=== PATIENT | male | born 1960 | race Caucasian/White ===

== ENCOUNTER 2020-09-05 19:51 | Emergency (ER) | payer MEDICAID ==
--- NOTE | 2020-09-05 20:09 | EDM.PDOC ---
ED HPI GENERAL MEDICAL PROBLEM - General Chief Complaint: Head Injury Stated Complaint: [facility] Time Seen by Provider: 09/05/20 20:07 - History of Present Illness INITIAL COMMENTS - FREE TEXT/NARRATIVE: 60-year-old male brought in by EMS about 45 minutes out. Sometime this afternoon the patient fell off his patio he says was 6 to 8 inches above the ground landed face first into the ground. Family gives no certainty of being knocked out but perhaps he was the patient does not believe he was. The patient is a little confused at this point he knows who he is but is not certain where he is at or the date. The patient has a history of chronic alcoholism. The patient dates he had a few drinks earlier today and believes this is why he fell. The patient denies pain or other problems at this time. - Related Data Allergies Allergy/AdvReac Type Severity Reaction Status Date / Time No Known Allergies Allergy Verified 09/05/20 20:04 Past Medical History Cardiovascular History: Reports: Hypertension Social & Family History - Tobacco Use Tobacco Use Status *Q: Current Every Day Tobacco User Years of Tobacco use: 30 Packs/Tins Daily: 1 - Caffeine Use Caffeine Use: Reports: Coffee - Recreational Drug Use Recreational Drug Use: No ED ROS GENERAL - Review of Systems Review Of Systems: See Below Constitutional: Reports: No Symptoms HEENT: Reports: No Symptoms Respiratory: Reports: No Symptoms Cardiovascular: Reports: No Symptoms Endocrine: Reports: No Symptoms GI/Abdominal: Reports: No Symptoms : Reports: No Symptoms Musculoskeletal: Reports: No Symptoms Skin: Reports: No Symptoms Neurological: Reports: Confusion. Denies: Headache Psychiatric: Reports: No Symptoms ED EXAM, HEAD INJURY - Physical Exam Exam: See Below Exam Limited By: Intoxication (However he tries to answer questions appropriately he is not combative and is otherwise cooperative) General Appearance: Alert, No Apparent Distress Head: Facial Abrasions, Facial Ecchymosis, Other (Is a little more than a couple hours old) Eyes: Bilateral Eye: EOMI, Normal Inspection, PERRL Ears: Normal External Exam, Normal Canal, Hearing Grossly Normal, Normal TMs Nose: Normal Inspection, Normal Mucousa, No Blood Throat/Mouth: Normal Inspection, Normal Lips, Normal Gums, Normal Oropharynx, Normal Voice, No Airway Compromise. No: Normal Teeth (He has dentures on the top no teeth on the bottom) Neck: Other (He has some limited range of motion but denies tenderness) Respiratory: No Respiratory Distress, Lungs Clear, Normal Breath Sounds Cardiovascular: Regular Rate, Rhythm, No Edema, No Murmur GI/Abdominal Exam: Normal Bowel Sounds, Soft, Non-Tender, Pelvis Stable Back Exam: Normal Inspection. No: CVA Tenderness (L), CVA Tenderness (R), Vertebral Tenderness Extremities: Normal Inspection, No Pedal Edema Course - Vital Signs Last Recorded V/S: Last Vital Signs Temp 36.6 C 09/05/20 20:01 Pulse 103 H 09/05/20 20:01 Resp 22 H 09/05/20 20:01 BP 159/109 H 09/05/20 20:01 Pulse Ox 91 L 09/05/20 20:01 - Orders/Labs/Meds Orders: Active Orders 24 hr Category Date Time Status Cervical Spine wo Cont [CT] Stat Exams 09/05/20 20:16 Taken Head wo Cont [CT] Stat Exams 09/05/20 20:16 Taken Labs: Laboratory Tests 09/05/20 09/05/20 09/05/20 Range/Units 20:01 20:01 20:01 WBC 5.70 (4.23-9.07) K/mm3 RBC 4.23 L (4.63-6.08) M/mm3 Hgb 14.6 (13.7-17.5) gm/dl Hct 44.1 (40.1-51.0) % MCV 104.3 H (79.0-92.2) fl MCH 34.5 H (25.7-32.2) pg MCHC 33.1 (32.2-35.5) g/dl RDW Std Deviation 51.9 H (35.1-43.9) fL Plt Count 77 L (163-337) K/mm3 MPV 12.6 H (9.4-12.3) fl Neut % (Auto) 85.7 H (34.0-67.9) % Lymph % (Auto) 6.7 L (21.8-53.1) % Sauk % (Auto) 7.0 (5.3-12.2) % Eos % (Auto) 0 L (0.8-7.0) Baso % (Auto) 0.4 (0.1-1.2) % Neut # (Auto) 4.89 (1.78-5.38) K/mm3 Lymph # (Auto) 0.38 L (1.32-3.57) K/mm3 Sauk # (Auto) 0.40 (0.30-0.82) K/mm3 Eos # (Auto) 0.00 L (0.04-0.54) K/mm3 Baso # (Auto) 0.02 (0.01-0.08) K/mm3 Manual Slide Review Abnormal smear PT 10.9 (9.7-12.0) SECONDS INR 1.02 APTT 23.6 (21.7-31.4) SECONDS Sodium 140 (136-145) mEq/L Potassium 3.4 L (3.5-5.1) mEq/L Chloride 98 (98-107) mEq/L Carbon Dioxide 25 (21-32) mEq/L Anion Gap 20.4 H (5-15) BUN 8 (7-18) mg/dL Creatinine 0.9 (0.7-1.3) mg/dL Est Cr Clr Drug Dosing 85.50 mL/min Estimated GFR (MDRD) > 60 (>60) mL/min BUN/Creatinine Ratio 8.9 L (14-18) Glucose 194 H (74-106) mg/dL Calcium 9.0 (8.5-10.1) mg/dL Total Bilirubin 1.2 H (0.2-1.0) mg/dL AST 64 H (15-37) U/L ALT 33 (16-63) U/L Alkaline Phosphatase 78 (46-116) U/L Total Protein 8.3 H (6.4-8.2) g/dl Albumin 3.6 (3.4-5.0) g/dl Globulin 4.7 gm/dL Albumin/Globulin Ratio 0.8 L (1-2) Urine Color (Yellow) Urine Appearance (Clear) Urine pH (5.0-8.0) Ur Specific Bard (1.005-1.030) Urine Protein (Negative) Urine Glucose (UA) (Negative) Urine Ketones (Negative) Urine Occult Blood (Negative) Urine Nitrite (Negative) Urine Bilirubin (Negative) Urine Urobilinogen (0.2-1.0) Ur Leukocyte Esterase (Negative) Urine RBC (0-5) /hpf Urine WBC (0-5) /hpf Ur Squamous Epith Cells (0-5) /hpf Urine Bacteria (FEW) /hpf Urine Mucus (FEW) /hpf Urine Opiates Screen (LUKMNU=279) Ur Buprenorphine Scrn (CUTOFF=10) Ur Oxycodone Screen (VKQ3SC=476) Urine Methadone Screen (HSI4HD=229) Ur Propoxyphene Screen (YMZTMM=295) Ur Barbiturates Screen (MBCWVZ=495) Ur Tricyclics Screen (XZBOTC=719) Ur Phencyclidine Scrn (CUTOFF=25) Ur Amphetamine Screen (OJKQMT=751) U Methamphetamines Scrn (UYCKUD=654) U Benzodiazepines Scrn (LCASRW=874) U Cocaine Metab Screen (ZCPITK=463) U Marijuana (THC) Screen (CUTOFF=50) Ethyl Alcohol 0.00 (0.00) gm% 09/05/20 09/05/20 Range/Units 21:50 21:50 WBC (4.23-9.07) K/mm3 RBC (4.63-6.08) M/mm3 Hgb (13.7-17.5) gm/dl Hct (40.1-51.0) % MCV (79.0-92.2) fl MCH (25.7-32.2) pg MCHC (32.2-35.5) g/dl RDW Std Deviation (35.1-43.9) fL Plt Count (163-337) K/mm3 MPV (9.4-12.3) fl Neut % (Auto) (34.0-67.9) % Lymph % (Auto) (21.8-53.1) % Sauk % (Auto) (5.3-12.2) % Eos % (Auto) (0.8-7.0) Baso % (Auto) (0.1-1.2) % Neut # (Auto) (1.78-5.38) K/mm3 Lymph # (Auto) (1.32-3.57) K/mm3 Sauk # (Auto) (0.30-0.82) K/mm3 Eos # (Auto) (0.04-0.54) K/mm3 Baso # (Auto) (0.01-0.08) K/mm3 Manual Slide Review PT (9.7-12.0) SECONDS INR APTT (21.7-31.4) SECONDS Sodium (136-145) mEq/L Potassium (3.5-5.1) mEq/L Chloride (98-107) mEq/L Carbon Dioxide (21-32) mEq/L Anion Gap (5-15) BUN (7-18) mg/dL Creatinine (0.7-1.3) mg/dL Est Cr Clr Drug Dosing mL/min Estimated GFR (MDRD) (>60) mL/min BUN/Creatinine Ratio (14-18) Glucose (74-106) mg/dL Calcium (8.5-10.1) mg/dL Total Bilirubin (0.2-1.0) mg/dL AST (15-37) U/L ALT (16-63) U/L Alkaline Phosphatase (46-116) U/L Total Protein (6.4-8.2) g/dl Albumin (3.4-5.0) g/dl Globulin gm/dL Albumin/Globulin Ratio (1-2) Urine Color Yellow (Yellow) Urine Appearance Clear (Clear) Urine pH 7.0 (5.0-8.0) Ur Specific Bard > or = 1.030 (1.005-1.030) Urine Protein 2+ H (Negative) Urine Glucose (UA) Negative (Negative) Urine Ketones 1+ H (Negative) Urine Occult Blood Trace-intact H (Negative) Urine Nitrite Negative (Negative) Urine Bilirubin 1+ H (Negative) Urine Urobilinogen 2.0 H (0.2-1.0) Ur Leukocyte Esterase Negative (Negative) Urine RBC 5-10 H (0-5) /hpf Urine WBC 0-5 (0-5) /hpf Ur Squamous Epith Cells 5-10 H (0-5) /hpf Urine Bacteria Rare (FEW) /hpf Urine Mucus Moderate H (FEW) /hpf Urine Opiates Screen Negative (AZGNBT=171) Ur Buprenorphine Scrn Negative (CUTOFF=10) Ur Oxycodone Screen Negative (ATM9CX=612) Urine Methadone Screen Negative (UWH2HY=480) Ur Propoxyphene Screen Negative (AOPKNU=378) Ur Barbiturates Screen Negative (GQXAWQ=883) Ur Tricyclics Screen Negative (QCBJTL=650) Ur Phencyclidine Scrn Negative (CUTOFF=25) Ur Amphetamine Screen Negative (CNBFJA=887) U Methamphetamines Scrn Negative (QOICTL=778) U Benzodiazepines Scrn Negative (RFPMLB=213) U Cocaine Metab Screen Negative (CAMHER=451) U Marijuana (THC) Screen Negative (CUTOFF=50) Ethyl Alcohol (0.00) gm% Meds: Medications Discontinued Medications Generic Name Dose Route Start Last Admin Trade Name Nichole PRN Reason Stop Dose Admin Lactated Ringer's 1,000 mls @ 999 mls/hr 09/05/20 20:18 09/05/20 20:25 Ringers, Lactated IV 09/05/20 21:18 999 mls/hr .BOLUS ONE Administration Lactated Ringer's 1,000 mls @ 999 mls/hr 09/05/20 21:47 09/05/20 21:53 Ringers, Lactated IV 09/05/20 22:47 999 mls/hr .BOLUS ONE Administration Magnesium Oxide 800 mg 09/05/20 22:46 Magnesium Oxide PO 09/05/20 22:47 ONETIME ONE Ondansetron HCl 4 mg 09/05/20 20:18 09/05/20 20:25 Zofran IVPUSH 09/05/20 20:19 4 mg ONETIME ONE Administration Potassium Chloride 40 meq 09/05/20 22:46 Klor-Con M20 PO 09/05/20 22:47 ONETIME ONE - Re-Assessments/Exams Free Text/Narrative Re-Assessment/Exam: 09/05/20 22:52 Patient has received 2 L of fluid has been potassium is down a little bit we will give him 40 mEq of oral potassium and 800 mg of oral magnesium oxide. His labs are suggestive of a gentleman that really needs to consider quitting drinking. He is got some microscopic hematuria in his urine no evidence of infection. Patient is feeling pretty well at this point. Head CT is unremarkable and cervical spine does not show any acute changes. Discussed situation with the patient he has quit drinking multiple times in the past and has never had problems with seizures or required medical assistance to do so he understands he needs to quit drinking. The patient also has an intermittent cough I discussed this cough with the patient he says it is no worse than normal he is a smoker and this is a typical cough for him. He is strongly encouraged to follow-up with a local physician. He has a physician back home in [place] but it sounds like he is getting be up here for a while. The patient is alert and oriented x3 at this time. Departure - Departure Time of Disposition: 22:56 Disposition: Home, Self-Care 01 Clinical Impression: Alcoholism, Head injury, acute - Discharge Information Referrals: PCP,None [Primary Care Provider] - Forms: ED Department Discharge Additional Instructions: Return to the emergency room with any questions problems or worsening symptoms. Follow-up with a local healthcare provider discussed your alcoholism and the importance of quitting drinking. Discuss you have microscopic hematuria, or small amount of blood in your urine sometimes this can be an indication of a developing problem and needs to be followed. You should also be checked at the end of this week for follow-up with your head injury. You may have had a concussion. Time will tell with this however close follow-up is essential. Push lots of fluids. Avoid alcohol. Start magnesium oxide 400 mg daily this is [id number]. Sepsis Event Note (ED) - Evaluation Sepsis Screening Result: No Definite Risk - Focused Exam Vital Signs: Vital Signs Temp Pulse Resp BP Pulse Ox 09/05/20 20:01 36.6 C 103 H 22 H 159/109 H 91 L - My Orders Last 24 Hours: My Active Orders 09/05/20 20:16 Cervical Spine wo Cont [CT] Stat Head wo Cont [CT] Stat - Assessment/Plan Last 24 Hours: My Active Orders 09/05/20 20:16 Cervical Spine wo Cont [CT] Stat Head wo Cont [CT] Stat
[2020-09-05] MEDS ORDERED: Ondansetron 4 MG/2 ML SDV IVPUSH ONE (20:18)
[2020-09-05] MEDS ORDERED: Lactated Ringers 1,000 ML IV ONE ×2 (20:18→21:47)
[2020-09-05] MEDS ORDERED: Potassium Chloride 20 MEQ Tab.ER PO ONE (22:46)
[2020-09-05] MEDS ORDERED: Magnesium Oxide 400 MG Tab PO ONE (22:46)
--- NOTE | 2020-09-06 08:40 | CT ---
PROCEDURE INFORMATION: Exam: CT Cervical Spine Without Contrast Exam date and time: 09/05/2020 8:24 PM Age: 60 years old Clinical indication: Injury or trauma; Blunt trauma; Patient HX: Fall, intoxicated TECHNIQUE: Imaging protocol: Computed tomography images of the cervical spine without contrast. COMPARISON: No relevant prior studies available. FINDINGS: Bones/joints: There are no perched or locked facets and the craniocervical relationship is normal. No acute fracture. Discs/Spinal canal/Neural foramina: Age-appropriate. Soft tissues: Unremarkable. Larynx: Spondylosis contributing to multilevel bilateral foraminal stenosis and central canal stenosis. Lungs: Lung apices are normal. Vasculature: There are intimal calcifications of the carotid arteries. IMPRESSION: No sign of acute cervical spine injury. Thank you for allowing us to participate in the care of your patient. Dictated and Authenticated by: Trace Restrepo MD 09/05/2020 9:55 PM Central Time ([place] & [place]) [facility] SYSTEMVanessa
--- NOTE | 2020-09-06 08:41 | CT ---
PROCEDURE INFORMATION: Exam: CT Head Without Contrast Exam date and time: 09/05/2020 8:24 PM Age: 60 years old Clinical indication: Injury or trauma; Patient HX: Fall, intoxicated TECHNIQUE: Imaging protocol: Computed tomography of the head without contrast. COMPARISON: No relevant prior studies available. FINDINGS: Brain: No mass effect or midline shift. No abnormal densities are seen intracranially; no sign of acute intracranial hemorrhage or cerebral edema. Cerebral ventricles: No ventriculomegaly. Bones/joints: Skull base and overlying calvarium are intact. No lytic or osteosclerotic lesions. Paranasal sinuses: Visualized sinuses are unremarkable. No fluid levels. Mastoid air cells: Visualized mastoid air cells are well aerated. Soft tissues: Unremarkable. IMPRESSION: No sign of acute intracranial injury or skull fracture. Thank you for allowing us to participate in the care of your patient. Dictated and Authenticated by: Trace Restrepo MD 09/05/2020 9:50 PM Central Time ([place] & [place]) [facility]
== END 2020-09-05 23:17 | disposition home or self-care (01) ==
LOC: JD.ED 19:51
DX: S09.90XA Unspecified injury of head, initial encounter (principal); S00.83XA Contusion of other part of head, initial encounter; F10.20 Alcohol dependence, uncomplicated; I10 Essential (primary) hypertension; F17.210 Nicotine dependence, cigarettes, uncomplicated; W17.89XA Other fall from one level to another, initial encounter; Y92.009 Unspecified place in unspecified non-institutional (private) residence as the place of occurrence of the external cause
CPT/HCPCS: 36415; 70450; 72125; 80053; 80306; 80307; 81001; 85025; 85610; 85730; 96374; 99285; A9270; J2405; J7120; 99283